=== PATIENT | female | born 1945 | race Caucasian/White ===

== ENCOUNTER 2016-06-29 14:11 | Inpatient (IN) ==
--- NOTE | 2016-07-01 15:00 | Internal Med History&Physical ---
Date of Encounter: 07/01/16 Time of Encounter: 14:58 Assessment and Plan (1) S/P TKR (total knee replacement) Current visit: Yes Status: Acute PT OT to work on gait, transfer balance. Qualifiers: Laterality: left Qualified Code(s): Z96.652 - Presence of left artificial knee joint (2) Diabetes mellitus Current visit: Yes Status: Chronic On Actos and glipizide. 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 Will monitor Qualifiers: Hypertension type: unspecified secondary hypertension Qualified Code(s): I15.9 - Secondary hypertension, unspecified; I15 - Secondary hypertension Internal Medicine - H&P: HPI Admitted From: Intrahospital Transfer Plans for Post Hospital Care: Home History of present illness: Ms. Salgado is a 71 year old female admitted to this facility status post left total knee replacement secondary to osteoarthritis. No immediate complications postop. On today's examination the patient complains of 5 out of 10 post op pain. He denies any shortness of breath. No chest pain. No nausea vomiting. Past Med Surg Social Fam HX - Past Medical History Medical history: diabetes, hyperlipidemia, hypertension, renal disease, other Psychiatric history: depression - Past Surgical History Surgical History: cataract, hysterectomy - Social History Smoking Status: Never smoker Smokeless Tobacco Status: No Alcohol use: none Drug use: none - Family History Mother Living Status: Hx Family Cancer: Yes (BOWEL) Father Living Status: Hx Family Cancer: Yes (PROSTATE) Internal Medicine - H&P: Meds Aspirin Enteric Coated [Aspirin EC] 81 mg PO DAILY 06/28/16 [History] GlipiZIDE [Glipizide Xl] 10 mg PO DAILY 06/28/16 [History] Losartan Potassium [Cozaar] 100 mg PO HS 06/28/16 [History] Lovastatin 10 mg PO HS 06/28/16 [History] Metoprolol XL (24 HR) Succ [Toprol XL] 50 mg PO DAILY 06/28/16 [History] Multivitamin [One Daily Essential] 1 each PO DAILY 06/28/16 [History] [place]-3/Dha/Epa/Fish Oil [Fish Oil 1,000 mg Softgel] 1 each PO DAILY 06/28/16 [ History] Pioglitazone HCl [Actos] 30 mg PO DAILY 06/28/16 [History] Sertraline [Zoloft] 50 mg PO HS 06/28/16 [History] Triamterene/HCTZ 37.5/25mg [Dyazide] 1 each PO DAILY 06/28/16 [History] OxyCODONE Immed Rel [Roxicodone 5 MG] 10 mg PO Q6HR PRN 07/01/16 [History] Allergies lisinopril Allergy (Verified 06/28/16 09:22) Cough All Systems PM: A 10-system review of systems was performed and is negative for pertinent findings except as documented above in the HPI. - Constitutional Constitutional: no chills, no fever(s), no night sweats - Cardiovascular Cardiovascular ROS IM: no chest pain, no diaphoresis, no dyspnea, no lightheadedness, no palpitations, no syncope - Respiratory Respiratory: no cough, no dyspnea, no wheezing, no excessive phlegm production - Gastrointestinal Gastrointestinal: no abdominal pain, no diarrhea, no hematemesis, no hematochezia, no melena, no nausea, no vomiting - Musculoskeletal Musculoskeletal ROS IM: arthralgias, joint swelling, stiffness - Integumentary Integumentary IM: no rash, no unusual bruising - Neurological Neurological ROS: no confusion, no convulsions, no focal weakness, no numbness, no tingling, no tremor(s) - Constitutional Vitals: Temp Pulse Resp BP Pulse Ox 99.2 F 86 20 172/62 92 07/01/16 14:02 07/01/16 14:02 07/01/16 14:02 07/01/16 14:02 07/01/16 14:02 General appearance: Present: A&O X 3, pleasant, no acute distress - Respiratory Respiratory exam: Present: CTAB. Absent: accessory muscle use, rales, rhonchi, wheezes - Cardiovascular Cardiovascular exam: Present: RRR, +S1, +S2. Absent: diastolic murmur, gallop, rubs, systolic murmur - GI/Abdominal GI/Abdominal exam: Present: normal bowel sounds, soft, no peritoneal signs. Absent: distended, tenderness - Expanded Lower Extremities Exam Knee exam: Present: ecchymosis, full ROM, swelling, tenderness - Incison Incision: Present: clean and dry
[2016-07-01] MEDS: *HR* OxyCODONE Immed Rel 5 MG TABLET PO PRN ×2 (15:20→21:02)
[2016-07-02] MEDS: *HR* OxyCODONE Immed Rel 5 MG TABLET PO PRN ×2 (01:00→06:16)
[2016-07-02 05:46] LABS: Basophils % 0.3 %; Eosinophils # 0.1 K/mcL (0.0-0.6); Eosinophils % 0.6 %; Hematocrit 26.7 % (35.3-44.9); Immature Granulocytes % 0.6 % (0-4); Lymphocytes # 3.1 K/mcL (0.6-4.6); Lymphocytes % 33.4 %; Mean Corpuscular HGB Conc 33.7 g/dL (31.6-35.5); Mean Corpuscular Hemoglobin 29.7 pg (28.0-33.3); Mean Corpuscular Volume 88.1 fL (83.0-100.0); Mean Platelet Volume 11.4 fL (9.4-12.4); Monocytes % 11.2 %; Nucleated Red Blood Cells 0.3 /100 WBC (0); Red Blood Count 3.03 M/mcL (3.82-4.97); Red Cell Distribution Width 14.4 % (11.5-14.5); Segmented Neutrophils % 53.9 %
[2016-07-02 05:47] LABS: INR 1.2; Prothrombin Time 12.6 Seconds (9.4-12.1)
[2016-07-02 05:50] LABS: Activated Partial Thrombo Time 24.3 Seconds (26.0-36.0)
[2016-07-02 05:56] LABS: Calcium 9.1 mg/dL (8.6-10.8); Potassium 4.8 mEq/L (3.5-4.5)
[2016-07-02 07:09] LABS: Platelet Count 72 K/mcL (140-400)
[2016-07-02] MEDS: *HR* GlipiZIDE XL (24 HR) 10 MG TABLET PO SCH (08:14)
[2016-07-02] MEDS: Aspirin Enteric Coated 325 MG Tablet PO SCH (08:14)
[2016-07-02] MEDS: *HR* Pioglitazone 30 MG TABLET PO SCH (08:14)
[2016-07-02] MEDS: Multivit/Ca/Min/Fe/FA 1 TAB TABLET PO SCH (08:14)
[2016-07-02] MEDS: Metoprolol XL (24 HR) Succ 50 MG TAB.ER.24H PO SCH (08:14)
[2016-07-02] MEDS ORDERED: *HR* OxyCODONE Immed Rel 5 MG TABLET PO PRN ×2 (09:56→10:32)
--- NOTE | 2016-07-02 10:37 | Internal Med Progress Note ---
Date of Encounter: 07/02/16 Time of Encounter: 10:35 - Assessment and plan (1) S/P TKR (total knee replacement) Current Visit: Yes Status: Acute Assessment and plan: PT OT working on gait, transfer, endurance. 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 Requested to change medications to tramadol. No shortness of breath. No chest pain. Good oral intake. No nausea vomiting. - Constitutional Vitals: Temp Pulse Resp BP Pulse Ox 97.8 F 81 18 130/80 95 07/02/16 07:14 07/02/16 07:14 07/02/16 07:14 07/02/16 07:14 07/02/16 07:14 General appearance: Present: A&O X 3, pleasant, no acute distress - Respiratory Respiratory exam: Present: CTAB. Absent: accessory muscle use, rales, rhonchi, wheezes - Cardiovascular Cardiovascular exam: Present: RRR, +S1, +S2. Absent: diastolic murmur, gallop, rubs, systolic murmur - GI/Abdominal GI/Abdominal exam: Present: normal bowel sounds, soft, no peritoneal signs. Absent: distended, tenderness - Expanded Lower Extremities Exam Knee exam: Present: swelling, tenderness Gait: Present: antalgic - Incison Incision: Present: clean and dry Internal Medicine: Result - Labs CBC & Chem 7: 07/02/16 05:35 07/02/16 05:35 Labs: Short CBC 07/02/16 Range/Units 05:35 WBC 9.3 (4.3-11.1) K/mcL Hgb 9.0 L (11.5-15.4) g/dL Hct 26.7 L (35.3-44.9) % Plt Count 72 L (140-400) K/mcL Neutrophils # 5.0 (1.6-8.9) K/mcL BMP 07/02/16 05:35 Sodium 136 Potassium 4.8 H Chloride 100 Carbon Dioxide 27 BUN 35 H Creatinine 1.23 H Glucose 149 H Calcium 9.1 - ABG Interpretation ABG results: PT/INR, D-dimer PT 12.6 Seconds (9.4-12.1) H 07/02/16 05:35 Consult Discharge Plan - Plan Referrals: Jeyson Burger MD [Primary Care Provider] -
[2016-07-02] MEDS ORDERED: MOM Conc 10 ML UD.LIQ PO PRN (22:14)
[2016-07-03] MEDS: *HR* Pioglitazone 30 MG TABLET PO SCH (08:33)
[2016-07-03] MEDS: *HR* GlipiZIDE XL (24 HR) 10 MG TABLET PO SCH (08:33)
[2016-07-03] MEDS: Metoprolol XL (24 HR) Succ 50 MG TAB.ER.24H PO SCH (08:34)
[2016-07-03] MEDS: *HR* OxyCODONE Immed Rel 5 MG TABLET PO PRN ×3 (08:34→21:53)
[2016-07-03] MEDS: Multivit/Ca/Min/Fe/FA 1 TAB TABLET PO SCH (08:34)
[2016-07-03] MEDS: Aspirin Enteric Coated 325 MG Tablet PO SCH (08:34)
--- NOTE | 2016-07-03 08:35 | Internal Med Progress Note ---
Date of Encounter: 07/03/16 Time of Encounter: 08:34 - Assessment and plan (1) S/P TKR (total knee replacement) Current Visit: Yes Status: Acute Assessment and plan: PT OT working on gait, transfer, endurance. 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 Tramadol works better in terms of making her drowsy.. No shortness of breath. No chest pain. Good oral intake. No nausea vomiting. - Constitutional Vitals: Temp Pulse Resp BP Pulse Ox 98.2 F 67 18 146/73 95 07/03/16 08:00 07/03/16 08:00 07/03/16 08:00 07/03/16 08:00 07/03/16 08:00 General appearance: Present: A&O X 3, pleasant, no acute distress - Respiratory Respiratory exam: Present: CTAB. Absent: accessory muscle use, rales, rhonchi, wheezes - Cardiovascular Cardiovascular exam: Present: RRR, +S1, +S2. Absent: diastolic murmur, gallop, rubs, systolic murmur - GI/Abdominal GI/Abdominal exam: Present: normal bowel sounds, soft, no peritoneal signs. Absent: distended, tenderness - Expanded Lower Extremities Exam Knee exam: Present: ecchymosis, swelling, tenderness - Incison Incision: Present: clean and dry Internal Medicine: Result - Labs CBC & Chem 7: 07/02/16 05:35 07/02/16 05:35 - ABG Interpretation ABG results: PT/INR, D-dimer PT 12.6 Seconds (9.4-12.1) H 07/02/16 05:35 Consult Discharge Plan - Plan Referrals: Jeyson Burger MD [Primary Care Provider] -
[2016-07-04] MEDS: *HR* OxyCODONE Immed Rel 5 MG TABLET PO PRN ×3 (03:48→16:23)
[2016-07-04] MEDS: Aspirin Enteric Coated 325 MG Tablet PO SCH (08:13)
[2016-07-04] MEDS: *HR* Pioglitazone 30 MG TABLET PO SCH (08:14)
[2016-07-04] MEDS: Multivit/Ca/Min/Fe/FA 1 TAB TABLET PO SCH (08:14)
[2016-07-04] MEDS: Metoprolol XL (24 HR) Succ 50 MG TAB.ER.24H PO SCH (08:14)
[2016-07-04] MEDS: *HR* GlipiZIDE XL (24 HR) 10 MG TABLET PO SCH (08:14)
--- NOTE | 2016-07-05 03:13 | Internal Med Progress Note ---
Date of Encounter: 07/05/16 Time of Encounter: 03:10 - Assessment and plan (1) S/P TKR (total knee replacement) Current Visit: Yes Status: Acute Assessment and plan: PT OT working on gait, transfer, endurance. Qualifiers: Laterality: left Qualified Code(s): Z96.652 - Presence of left artificial knee joint (2) Diabetes mellitus Current Visit: Yes Status: Chronic Assessment and plan: Well-controlled Qualifiers: Diabetes mellitus type: type 2 Diabetes mellitus complication status: with diabetic arthropathy Diabetes mellitus complication detail: with other arthropathy Diabetes mellitus terminal make up operator insulin use: with longterm use Qualified Code(s): E11.618 - Type 2 diabetes mellitus with other diabetic arthropathy; Z79.4 - detention (current) use of insulin (3) Hypertension Current Visit: Yes Status: Chronic Qualifiers: Hypertension type: unspecified secondary hypertension Qualified Code(s): I15.9 - Secondary hypertension, unspecified; I15 - Secondary hypertension - Subjective Interval history: Complains of postop knee pain. Pain is improving. Improving in terms of gait and strength. y.. No shortness of breath. No chest pain. Good oral intake. No nausea vomiting. - Constitutional Vitals: Temp Pulse Resp BP Pulse Ox 98.8 F 78 16 137/78 93 07/04/16 19:00 07/04/16 19:00 07/04/16 19:00 07/04/16 19:00 07/04/16 19:00 General appearance: Present: A&O X 3, pleasant, no acute distress - Respiratory Respiratory exam: Present: CTAB. Absent: accessory muscle use, rales, rhonchi, wheezes - Cardiovascular Cardiovascular exam: Present: RRR, +S1, +S2. Absent: diastolic murmur, gallop, rubs, systolic murmur - GI/Abdominal GI/Abdominal exam: Present: normal bowel sounds, soft, no peritoneal signs. Absent: distended, tenderness - Expanded Lower Extremities Exam Knee exam: Present: erythema, swelling, tenderness. Absent: warmth Gait: Present: antalgic - Incison Incision: Present: clean and dry Internal Medicine: Result - Labs CBC & Chem 7: 07/02/16 05:35 07/02/16 05:35 - ABG Interpretation ABG results: PT/INR, D-dimer PT 12.6 Seconds (9.4-12.1) H 07/02/16 05:35 Consult Discharge Plan - Plan Referrals: Jeyson Burger MD [Primary Care Provider] -
[2016-07-05 05:27] LABS: Basophils % 0.3 %; Eosinophils # 0.1 K/mcL (0.0-0.6); Eosinophils % 1.4 %; Hematocrit 27.2 % (35.3-44.9); Immature Granulocytes % 0.5 % (0-4); Lymphocytes # 3.9 K/mcL (0.6-4.6); Lymphocytes % 39.7 %; Mean Corpuscular HGB Conc 33.1 g/dL (31.6-35.5); Mean Corpuscular Hemoglobin 29.4 pg (28.0-33.3); Mean Corpuscular Volume 88.9 fL (83.0-100.0); Monocytes % 9.8 %; Neutrophils # 4.8 K/mcL (1.6-8.9); Platelet Count 110 K/mcL (140-400); Red Blood Count 3.06 M/mcL (3.82-4.97); Red Cell Distribution Width 14.5 % (11.5-14.5); Segmented Neutrophils % 48.3 %
[2016-07-05 05:41] LABS: Calcium 9.2 mg/dL (8.6-10.8); Potassium 5.4 mEq/L (3.5-4.5)
[2016-07-05] MEDS: *HR* OxyCODONE Immed Rel 5 MG TABLET PO PRN ×2 (06:05→11:53)
[2016-07-05] MEDS: Multivit/Ca/Min/Fe/FA 1 TAB TABLET PO SCH (08:16)
[2016-07-05] MEDS: Aspirin Enteric Coated 325 MG Tablet PO SCH (08:16)
[2016-07-05] MEDS: *HR* Pioglitazone 30 MG TABLET PO SCH (08:16)
[2016-07-05] MEDS: *HR* GlipiZIDE XL (24 HR) 10 MG TABLET PO SCH (08:17)
[2016-07-05] MEDS: Metoprolol XL (24 HR) Succ 50 MG TAB.ER.24H PO SCH (08:17)
[2016-07-06] MEDS: *HR* OxyCODONE Immed Rel 5 MG TABLET PO PRN (08:19)
[2016-07-06] MEDS: *HR* Pioglitazone 30 MG TABLET PO SCH (08:20)
[2016-07-06] MEDS: Aspirin Enteric Coated 325 MG Tablet PO SCH (08:20)
[2016-07-06] MEDS: *HR* GlipiZIDE XL (24 HR) 10 MG TABLET PO SCH (08:20)
[2016-07-06] MEDS: Metoprolol XL (24 HR) Succ 50 MG TAB.ER.24H PO SCH (08:20)
[2016-07-06] MEDS: Multivit/Ca/Min/Fe/FA 1 TAB TABLET PO SCH (08:20)
--- NOTE | 2016-07-06 15:16 | Internal Med Progress Note ---
Date of Encounter: 07/06/16 Time of Encounter: 15:15 - Assessment and plan (1) S/P TKR (total knee replacement) Current Visit: Yes Status: Acute Assessment and plan: He had total knee replacement for osteoarthritis doing very well will home tomorrow with her family Qualifiers: Laterality: left Qualified Code(s): Z96.652 - Presence of left artificial knee joint - Subjective Interval history: Doing very well meeting goals be discharged - Constitutional Vitals: Temp Pulse Resp BP Pulse Ox 97.8 F 67 16 145/78 97 07/06/16 07:00 07/06/16 07:00 07/06/16 07:00 07/06/16 07:00 07/06/16 07:00 General appearance: Present: A&O X 3, pleasant, no acute distress - Head Head exam: Present: atraumatic, normal inspection, normocephalic - Neck Neck exam general surgery: Present: supple, trachea midline. Absent: lymphadenopathy - Respiratory Respiratory exam: Present: CTAB. Absent: accessory muscle use, rales, rhonchi, wheezes - Cardiovascular Cardiovascular exam: Present: RRR, +S1, +S2. Absent: diastolic murmur, gallop, rubs, systolic murmur Internal Medicine: Result - Labs CBC & Chem 7: 07/05/16 05:10 07/05/16 05:10 - ABG Interpretation ABG results: PT/INR, D-dimer PT 12.6 Seconds (9.4-12.1) H 07/02/16 05:35 Consult Discharge Plan - Plan Referrals: Jeyson Burger MD [Primary Care Provider] -
[2016-07-07 06:59] VITALS: BP 154/80
[2016-07-07] MEDS: Multivit/Ca/Min/Fe/FA 1 TAB TABLET PO SCH (09:45)
[2016-07-07] MEDS: Metoprolol XL (24 HR) Succ 50 MG TAB.ER.24H PO SCH (09:45)
[2016-07-07] MEDS: *HR* GlipiZIDE XL (24 HR) 10 MG TABLET PO SCH (09:45)
[2016-07-07] MEDS: *HR* OxyCODONE Immed Rel 5 MG TABLET PO PRN ×2 (09:45→10:27)
[2016-07-07] MEDS: *HR* Pioglitazone 30 MG TABLET PO SCH (09:46)
[2016-07-07] MEDS: Aspirin Enteric Coated 325 MG Tablet PO SCH (09:46)
--- NOTE | 2016-07-07 11:42 | Discharge Summary ---
Date of Encounter: 07/07/16 Time of Encounter: 11:40 - Discharge Diagnosis (1) S/P TKR (total knee replacement) Priority: Primary Status: Acute Comments: Patient had a total knee replacement for osteoarthritis. His done well Qualifiers: Laterality: left Qualified Code(s): Z96.652 - Presence of left artificial knee joint - Discharge Medications Home Medications: Aspirin Enteric Coated [Aspirin EC] 81 mg PO DAILY 06/28/16 [History] GlipiZIDE [Glipizide Xl] 10 mg PO DAILY 06/28/16 [History] Losartan Potassium [Cozaar] 100 mg PO HS 06/28/16 [History] Lovastatin 10 mg PO HS 06/28/16 [History] Metoprolol XL (24 HR) Succ [Toprol XL] 50 mg PO DAILY 06/28/16 [History] Multivitamin [One Daily Essential] 1 each PO DAILY 06/28/16 [History] [place]-3/Dha/Epa/Fish Oil [Fish Oil 1,000 mg Softgel] 1 each PO DAILY 06/28/16 [ History] Pioglitazone HCl [Actos] 30 mg PO DAILY 06/28/16 [History] Sertraline [Zoloft] 50 mg PO HS 06/28/16 [History] Triamterene/HCTZ 37.5/25mg [Dyazide] 1 each PO DAILY 06/28/16 [History] OxyCODONE Immed Rel [Roxicodone 5 MG] 10 mg PO Q6HR PRN 07/01/16 [History] Allergies/Adverse Reactions: Allergies lisinopril Allergy (Verified 06/28/16 09:22) Cough Date of admission: 07/01/16 13:55 Primary care physician: Ashely Centeno Consults: 07/01/16 15:06 Consult to Occupational Therapy [CONS] Routine Comment: Evaluate, develop and implement POC Consult to Physical Therapy [CONS] Routine Comment: Evaluate, develop and implement POC Consult to Recreational Therapy [CONS] Routine Comment: Evaluate, develop and implement POC Discharging clinician: Maurisio Byrne Anticipated date of discharge: 07/07/16 - Patient Status Disposition: Home, Self-Care Condition: Good Functional capacity at discharge: uses cane/walker Overall status at discharge: patient is progressing back to baseline - Discharge Instructions Instructions: Total Knee Replacement (DC), Diabetes Mellitus Type 2 in Adults ( DC), Chronic Hypertension (DC) Follow Up With: Tony Da Silva MD [Partnered Physician] - 07/27/16 9:05 am Macarena Hurtado PAC [Physician Auto Service Instructor] - 07/08/16 10:30 am Jeyson Burger MD [Primary Care Provider] - 11/17/16 9:15 am ( ) - Diet and Activity Activity: ambulate only with your walker Diet: advance to your usual diet Interval History: A she was beta postop total knee replacement. Hospital course: Ms. Salgado is a 71 year old female Patient worked for follow modalities and rehabilitation is up and moving about and will be discharged home in the company of her - Time Spent with Patient Total time spent providing and/or coordinating discharge services: Less than 30 minutes - Constitutional Vitals: Temp Pulse Resp BP Pulse Ox 97.8 F 71 18 154/80 97 07/07/16 06:58 07/07/16 06:58 07/07/16 06:58 07/07/16 06:58 07/07/16 06:58 General appearance: Present: A&O X 3, pleasant, no acute distress - Head Head exam: Present: atraumatic, normal inspection, normocephalic - Neck Neck exam general surgery: Present: supple, trachea midline. Absent: lymphadenopathy - Respiratory Respiratory exam: Present: CTAB. Absent: accessory muscle use, rales, rhonchi, wheezes - Cardiovascular Cardiovascular exam: Present: RRR, +S1, +S2. Absent: diastolic murmur, gallop, rubs, systolic murmur - GI/Abdominal GI/Abdominal exam: Present: normal bowel sounds, soft, no peritoneal signs. Absent: distended, tenderness
== END 2016-07-07 14:00 | disposition home or self-care (01) | DRG 561 ==
LOC: INPGRE 07-01 13:55
PROVIDERS: ADMIT Internal Medicine; ATTEND Internal Medicine